=== PATIENT | female | born 1975 | race African-American/Black ===

== ENCOUNTER 2016-05-14 12:52 | Emergency (ER) | payer MEDICAID ==
[~2016-05-14] VITALS: Ht 162.6 cm; Wt 54.4 kg
[~2016-05-14 12:52] MED LIST: DOXYCYCLINE MO100 MG ORAL
--- NOTE | 2016-05-14 13:10 | Emergency Room Report ---
History of Present Illness General Chief Complaint: Overdose Source: Patient, EMS Present Illness HPI 48 YO F BIBEMS for suspected OD - friend's landlord saw patient stumbling around , called 911. Patient endorses marijuana. no other drugs or ETOH. Endorses + history of DM on metformin/glyburide. Didnt take today. Otherwise denies fever /chills, chest pain, SOB, abd pain, urinary complaints. Allergies: Coded Allergies: No Known Allergies (Unverified , 10/13/14) Patient History Past Medical History: DM Past Surgical History: none Pertinent Family History: none Social History: Reports: drug use, smoking Last Menstrual Period: 04/20/16 Now: No Immunizations: UTD Reviewed Nursing Documentation: PMH: Agreed, PSxH: Agreed Nursing Documentation-PMH Hx Diabetes: Yes Review of Systems All Other Systems: negative except mentioned in HPI Physical Exam Vital Signs Date Time Temp Pulse Resp B/P Pulse Ox O2 Delivery O2 Flow Rate FiO2 05/14/16 12:52 119 20 152/113 100 Room Air Sp02 EP Interpretation: reviewed, normal General Appearance: normal inspection, well appearing, no apparent distress, alert, GCS 15, non-toxic Head: normocephalic, atraumatic Eyes: bilateral eye EOMI, bilateral eye PERRL, bilateral eye other - rotary nystagmus ENT: normal ENT inspection, hearing grossly normal, normal voice Neck: normal inspection, full range of motion, supple, no bony tend Respiratory: normal inspection, lungs clear, normal breath sounds, no respiratory distress, no retraction, no wheezing Cardiovascular #1: regular rate, rhythm, no edema Gastrointestinal: normal inspection, normal bowel sounds, non tender, soft, no guarding, no hernia Genitourinary: no CVA tenderness Musculoskeletal: normal inspection, back normal, normal range of motion, Canelo' s Sign negative Neurologic: normal inspection, alert, oriented x3, responsive, chassis inspector III-XII nml as tested, motor strength/tone normal, speech normal Psychiatric: normal inspection, judgement/insight normal, mood/affect normal, no suicidal/homicidal ideation, no delusions Medical Decision Making Diagnostic Impression: Primary Impression: Drug overdose Qualified Codes: T50.901A - Poisoning by unspecified drugs, medicaments and biological substances, accidental (unintentional), initial encounter Additional Impressions: Hyperglycemia Marijuana intoxication Qualified Codes: F12.920 - Cannabis use, unspecified with intoxication, uncomplicated ER Course 40 YO F with endorsed MJ overdose. No SI, HI, AVH. VSS. Afebrile. Elevated blood sugar, otherwise asymptomatic Low suspicion for DKA Gave PO Metformin with improvement in sugar Likely non-compliance Reevaluation Time: 13:43 Last Vital Signs Date Time Temp Pulse Resp B/P Pulse Ox O2 Delivery O2 Flow Rate FiO2 05/14/16 12:52 119 20 152/113 100 Room Air Status: improved Reevaluation Impression Informed by RN that patient eloped at 134pm. Refused to give Urine for Utox. Refused PO Metformin Was not given DC instructions either Disposition: VIVI PAYNE M.D. May 14, 2016 13:10
[2016-05-14 13:29] VITALS: BP 149/112
[2016-05-14 13:32] VITALS: BP 149/112
[2016-05-14] MEDS ORDERED: metFORMIN 500mg tab ORAL SCH (16:30)
== END 2016-05-14 13:39 | disposition left against medical advice (07) ==
LOC: EDBD 12:52 → EMR 13:00
DX: T50.901A Poisoning by unspecified drugs, medicaments and biological substances, accidental (unintentional), initial encounter (principal); E11.65 Type 2 diabetes mellitus with hyperglycemia; F12.920 Cannabis use, unspecified with intoxication, uncomplicated; F17.200 Nicotine dependence, unspecified, uncomplicated; Y92.9 Unspecified place or not applicable; Y99.8 Other external cause status
CPT/HCPCS: 82962; 99283

== ENCOUNTER 2020-03-07 21:10 | Emergency (ER) | payer MEDICAID, OTHER ==
[~2020-03-07] VITALS: Ht 157.5 cm; Wt 52.2 kg
--- NOTE | 2020-03-07 21:14 | NUR ---
ED Nurse Note: pt CHELSEA MONTEIRO RA 25 from home c/o R sided salivary gland swelling and pain. pt states that 2 years ago this happened to her and that she had to be admitted for IV abx and pain meds. pt reports taking advil PM and benadryl TUR[place] BONER. px is exacerbated by talking or eating, anything that causes her to move her mouth. pt denies airway compromise at this time, R side of face appears to be swollen compared to L side. vitals are noted to be stable on triage
[2020-03-07 21:15] VITALS: BP 119/68
[2020-03-07] MEDS ORDERED: dexAMETHasone 10mg/ml Inj IV ONE (21:30)
[2020-03-07] MEDS ORDERED: Omnipaque-300 100ml vial INJ ONE (21:30)
--- NOTE | 2020-03-07 21:37 | Emergency Room Report ---
History of Present Illness General Chief Complaint: Pain Source: Patient, EMS Present Illness HPI Disclaimer: Please note that this report is being documented using [employer] technology. This can lead to erroneous entry secondary to incorrect interpretation by the dictating instrument. HPI: 44-year-old female presents for evaluation of right-sided facial and neck swelling. She states she noticed some discomfort and swelling on the right side of her face and neck yesterday. Denies recent trauma, sore throat, nasal congestion, cough, fever, chills, shortness of breath. Feels a palpable tender node underneath the right jaw and some swelling over the right jaw and cheek as well. Able to tolerate secretions. She feels her throat and tongue are swelling and closing. No known allergies. Takes Metformin and glipizide to control her diabetes. Does not take SIVA inhibitors. Denies swelling or pain on the left side. Denies ear pain or swelling. She did notice some tooth pain in the right mandible last week but this is resolved. PMH: Diabetes PSH: Reviewed Allergies: Denied Social Hx: Reviewed Allergies: Coded Allergies: No Known Allergies (Unverified , 10/13/14) COVID-19 Screening Contact w/high risk pt: No Experienced COVID-19 symptoms?: No COVID-19 Testing performed COTTRELL BLOWER: No Nursing Documentation-PMH Hx Diabetes: Yes Review of Systems All Other Systems: negative except mentioned in HPI Physical Exam Vital Signs Date Time Temp Pulse Resp B/P (MAP) Pulse Ox O2 Delivery O2 Flow Rate FiO2 03/07/20 20:57 98.2 77 18 119/68 (85) 98 Room Air General: Awake and alert, no acute distress HEENT: NC/AT. EOMI. uvula midline. Cannot visualize the retropharynx of the tonsils. There is some tenderness below the tongue and the subglossal space as well as tender right-sided lymphadenopathy. Minor tenderness over the right mandible but no significant parotid swelling or tenderness. No tenderness over the mastoid. Cardiovascular: RRR. S1 and S2 normal. No murmur appreciated Resp: Normal work of breathing. No cough, wheezing or crackles appreciated Skin: Intact. No abrasions, laceration or rash over the exposed skin MSK: Normal tone and bulk. Moving all extremities. No obvious deformity. Neuro: Awake and alert. Mentating appropriately. Medical Decision Making Diagnostic Impression: Primary Impression: Sialadenitis ER Course Is a 44-year-old female presenting for unilateral facial neck swelling and pain. Reports recent tooth pain. I have the osteitis, gingivitis, deep space neck infection such as Nando's angina, abscess, parotitis, sialolith, among others. CT scan of the neck shows sialadenitis without signs of surrounding infection. Patient will be discharged with sour candies to increase elevation and help express the stones. Discussed reasons to return to the ER. She is otherwise stable and appropriate for outpatient follow-up. She understands and agrees with this treatment plan. Laboratory Tests Test 03/07/20 21:27 Urine HCG, Qualitative Negative (NEGATIVE) Sodium Level 134 MMOL/L (136-145) L Potassium Level 4.1 MMOL/L (3.5-5.1) Chloride Level 99 MMOL/L (98-107) Carbon Dioxide Level 30 MMOL/L (21-32) Anion Gap 5 mmol/L (5-15) Blood Urea Nitrogen 15 mg/dL (7-18) Creatinine 0.7 MG/DL (0.55-1.30) Estimated Glomerular Filtration Rate > 60 mL/min (>60) Glucose Level 323 MG/DL (74-106) H Calcium Level 9.2 MG/DL (8.5-10.1) CT/MRI/US Diagnostic Results CT/MRI/US Diagnostic Results : Impression Final Report EXAM: CT Neck With Intravenous Contrast CLINICAL HISTORY: SWELL TECHNIQUE: Axial computed tomography images of the neck with intravenous contrast. CTDI is 14.6 mGy and DLP is 485.5 mGy-cm. One or more of the following dose reduction techniques were used: automated exposure control, adjustment of the mA and/or kV according to patient size, use of iterative reconstruction technique. COMPARISON: No relevant prior studies available. FINDINGS: Oropharynx: Unremarkable. No significant tonsillar enlargement. No peritonsillar abscess. Hypopharynx: Unremarkable. Larynx: Unremarkable. Normal epiglottis. Trachea: Unremarkable. Retropharyngeal space: Unremarkable. Submandibular/parotid glands: Enlarged right submandibular gland with some hyperemia. Dilated right submandibular gland duct. There are a few stones in the distal right submandibular gland duct , measuring up to 4 mm. Thyroid: Thyromegaly. Bones/joints: Cervical degenerative disc disease. No acute fracture. Soft tissues: Unremarkable. Vasculature: No acute findings. Lymph nodes: Unremarkable. No lymphadenopathy. Lung apices: Unremarkable as visualized. IMPRESSION: A few stones in the distal right submandibular gland duct causing sialadenitis. Radiologist: Morgan Sharpe MD Electronically Signed: 03/07/20 23:06 Study ready at 22:48 and initial results transmitted at 23:06 Last Vital Signs Date Time Temp Pulse Resp B/P (MAP) Pulse Ox O2 Delivery O2 Flow Rate FiO2 03/07/20 21:15 98.2 78 18 119/68 98 Room Air Disposition: HOME, SELF-CARE Condition: Stable Referrals: PAV[facility] J[facility] PLN,REFERRI (PCP) Georges Somers MD Mar 07, 2020 21:37
[2020-03-07 22:20] LABS: ANION GAP 5 mmol/L (5-15); BLOOD UREA NITROGEN 15 mg/dL (7-18); CALCIUM 9.2 MG/DL (8.5-10.1); CARBON DIOXIDE 30 MMOL/L (21-32); CHLORIDE 99 MMOL/L (98-107); CREATININE 0.7 MG/DL (0.55-1.30); POTASSIUM 4.1 MMOL/L (3.5-5.1); SODIUM 134 MMOL/L (136-145)
--- NOTE | 2020-03-07 23:07 | Diagnostic Imaging Report ---
EXAM: CT Neck With Intravenous Contrast CLINICAL HISTORY: KASSANDRA TECHNIQUE: Axial computed tomography images of the neck with intravenous contrast. CTDI is 14.6 mGy and DLP is 485.5 mGy-cm. One or more of the following dose reduction techniques were used: automated exposure control, adjustment of the mA and/or kV according to patient size, use of iterative reconstruction technique. COMPARISON: No relevant prior studies available. FINDINGS: Oropharynx: Unremarkable. No significant tonsillar enlargement. No peritonsillar abscess. Hypopharynx: Unremarkable. Larynx: Unremarkable. Normal epiglottis. Trachea: Unremarkable. Retropharyngeal space: Unremarkable. Submandibular/parotid glands: Enlarged right submandibular gland with some hyperemia. Dilated right submandibular gland duct. There are a few stones in the distal right submandibular gland duct , measuring up to 4 mm. Thyroid: Thyromegaly. Bones/joints: Cervical degenerative disc disease. No acute fracture. Soft tissues: Unremarkable. Vasculature: No acute findings. Lymph nodes: Unremarkable. No lymphadenopathy. Lung apices: Unremarkable as visualized. IMPRESSION: A few stones in the distal right submandibular gland duct causing sialadenitis.
[2020-03-07 23:15] VITALS: BP 134/76
--- NOTE | 2020-03-07 23:15 | NUR ---
ED Nurse Note: Pt cleared by health care Provider for discharge. DC instructions/prescription was given and explained to pt and verbalized understanding of teachings. Instructed pt to follow up PCP within 3-6 days. All medical deviecs such as ID band and IV removed; IV site clean and bandaged. Pt is AAO x4, ambulatory and left with all personal belongings.
== END 2020-03-07 23:15 | disposition home or self-care (01) ==
LOC: EDBD 21:10 → EMR 21:27
DX: K11.20 Sialoadenitis, unspecified (principal); E11.9 Type 2 diabetes mellitus without complications
CPT/HCPCS: 36415; 70491; 80048; 81025; 96374; Q9967; Z7502; 99284